=== PATIENT | female | born 1970 | race Caucasian/White ===

== ENCOUNTER 2018-09-02 09:57 | Inpatient (IN) | payer MEDICAID ==
[~2018-09-02] VITALS: Ht 162.6 cm; Wt 88.6 kg
[2018-09-02 09:59] VITALS: Ht 162.6 cm; Wt 88.6 kg
--- NOTE | 2018-09-02 10:11 | NUR ---
PT HERE FOR PAIN 03/18 IN LEFT SHOULDER RADIATES TO LEFT FLANK WITH NAUSEA NO VOMITING STARTED YESTERDAY. PT HAS HX OF HTN. DENIES PAIN WITH URINATION BUT CLAIMS SHE IS HAVING PRESSURE WITH URINATION. PT PRESENT TO ED ALERT AND ORIENTED WITH NO DISTRESS NOTED. URINE OBTAINED FOR DIP
--- NOTE | 2018-09-02 10:11 | NUR ---
AT BEDSIDE FOR EVAL
[2018-09-02 10:43] LABS: BASOPHIL % 0.5 % (0-2); PLATELET COUNT 256 x10^3mcL (130-400)
[2018-09-02 10:47] LABS: microscopic required? YES; urine erythrocyte 3+ (NEGATIVE)
[2018-09-02 10:48] LABS: CALCIUM 8.6 mg/dL (8.5-10.1); CHLORIDE SERUM 102 mmol/L (98-107); CREATININE SERUM 0.7 mg/dL (0.6-1.0); GFR1 > 60 mL/min; GLUCOSE SERUM 166 mg/dL (74-106); SODIUM SERUM 136 mmol/L (136-145)
--- NOTE | 2018-09-02 11:30 | NUR ---
PT AWAITING ALL RESULTS AND REEVAL. VSS AND PAIN 2/10 AND TOLERABLE. NO DISTRESS NOTED AND WILL CONTINUE TO MONITOR
[2018-09-02 12:31] LABS: AMPHETAMINE QUAL UR NONE DETECTED (See below)
--- NOTE | 2018-09-02 12:34 | NUR ---
REPORT GIVEN TO KRISTIE BROWNLEE RN
[2018-09-02 12:35] LABS: CHOLESTEROL/HDL RATIO 3.4; MAGNESIUM 1.8 mg/dL (1.8-2.4); PHOSPHOROUS 3.2 mg/dL (2.5-4.9)
[2018-09-02 12:40] LABS: T3 TOTAL 1.15 ng/mL
[2018-09-02 12:48] LABS: FREE T4 0.91 ng/dL (0.76-1.46); FREE THYROXINE INDEX 3.5 ug/dL (1.4-4.5); T4(THYROXINE) 11.3 ug/dL (4.7-13.3)
--- NOTE | 2018-09-02 13:00 | NUR ---
RECEIVED FROM ER VIA GURNEY ADMITS FOR CHEST PAIN. SEEN AAOX4. SPOUSE AT BEDSIDE INTERPRETED FROM LATVIAN TO DUTCH. STATED PAIN TO LEFT SHOULDER RADIATING TO LEFT FLANK 7/10 ON PAIN SCALE. TELE#29 SHOWS NSR HR=73. BREATHING E/U ON ROOM AIR. V/S CHECKED STABLE,O2SAT 96% ON ROOM AIR. LUNG SOUND CTA BILATERALLY. NO EDEMA NOTED. STATED AMBULATORY WELL. S/L TO RT HAND FLUSHED PATENT. ORIENTING TO ROOM ENVIRONMENT. CALL LIGHT PLACED WITHIN EASY REACH. SIDERAILS UP X2.
[2018-09-02 13:03] VITALS: BP 130/74
--- NOTE | 2018-09-02 13:30 | NUR ---
TORADOL 30MG IVP GIVEN FOR LEFT FLANK PAIN. NO ADVERSE REACTION NOTED. WILL CONTINUE TO MONITOR.
--- NOTE | 2018-09-02 14:00 | NUR ---
FINISHED 100% OF LUNCH. DENIES NAUSEA AT THIS TIME.
--- NOTE | 2018-09-02 15:00 | NUR ---
SITTING AT BEDSIDE STATED LEFT FLANK PAIN RELIEF.
[2018-09-02 16:28] VITALS: BP 120/73
--- NOTE | 2018-09-02 16:30 | NUR ---
IV CATHETER#20 INSERTED TO LFA WITH GOOD BLD RETURNED AND FLUSHED WELL FOR CT L-SPINE WITH IV CONTRAST.
--- NOTE | 2018-09-02 16:56 | NUR ---
OFF FLOOR FOR CT L-SPINE VIA WHEELCHAIR.
--- NOTE | 2018-09-02 17:30 | NUR ---
BACK FROM CT SCAN, PATIENT MADE AWARE OF NOT TAKING METFORMIN AFTER IV CONTRAST GIVEN FOR 48HRS.
--- NOTE | 2018-09-02 19:10 | NUR ---
REC'D PT FROM DAY NURSE. FAMILY AT BEDSIDE. PT RESTING IN BED. AAOX4, SPEECH CLEAR, FOLLOWS COMMANDS. TELE 29. DENIES CP, DIZZINESS, OR PALPITATIONS. NO EDEMA NOTED. DENIES RESP DISTRESS OR SOB. BREATHING EVEN/UNLABORED ON RA. ABD SOFT/ROUND. DENIES ABD PAIN, TENDERNESS, OR N/V. VOIDING FREELY. MENSTRUATING- DAY 3. REPORTS MILD BLEEDING- DENIES ABNORMALITIES. REPORTS 6/10 L SIDED BACK PAIN. KPAD APPLIED PER ORDER. TOLERABLE AT THIS TIME. SKIN INTACT. IVS TO RH AND LFA FLUSHED AND PATENT. SITES WNL. CALL LIGHT WITHIN REACH, BED AT LOWEST POSITION. WILL CONTINUE TO MONITOR.
[2018-09-02 21:57] VITALS: BP 111/76
--- NOTE | 2018-09-03 01:13 | NUR ---
PT RESTING IN BED WITH EYES CLOSED. NO SIGNS OF DISTRESS NOTED. BREATHING EVEN/UNLABORED ON RA. CALL LIGHT WITHIN REACH, BED AT LOWEST POSITION. WILL CONTINUE TO MONITOR.
[2018-09-03 05:28] VITALS: BP 104/57
--- NOTE | 2018-09-03 05:51 | NUR ---
PT RESTING IN BED WITH EYES CLOSED. AWAKENS EASILY. REPORTS MILD BACK PAIN AT THIS TIME. KPAD IN PLACE. SCHEDULED FLEXERIL GIVEN. DENIES ANY CHEST PAIN OR DISCOMFORT. TROP (-) X3. NO SIGNIFICANT CHANGES DURING SHIFT. CALL LIGHT WITHIN REACH, BED AT LOWEST POSITION. WILL ENDORSE TO DAY NURSE.
[2018-09-03 06:30] LABS: BASOPHIL % 0.7 % (0-2); PLATELET COUNT 230 x10^3mcL (130-400); RED CELL DISTRIBUTION WIDTH 13.8 % (11.5-14.5)
[2018-09-03 06:57] LABS: CALCIUM 8.6 mg/dL (8.5-10.1); CARBON DIOXIDE 28.1 mmol/L (21-32); CHLORIDE SERUM 106 mmol/L (98-107); CREATININE SERUM 0.7 mg/dL (0.6-1.0); GFR1 > 60 mL/min; GLUCOSE SERUM 111 mg/dL (74-106); LIPASE 231 IU/L (73-393); MAGNESIUM 1.7 mg/dL (1.8-2.4); PHOSPHOROUS 4.1 mg/dL (2.5-4.9); POTASSIUM SERUM 4.2 mmol/L (3.5-5.1); SODIUM SERUM 141 mmol/L (136-145)
[2018-09-03 08:15] VITALS: BP 111/59
--- NOTE | 2018-09-03 08:30 | NUR ---
AAO TIMES 4. TELE # 29 SR. LUNGS CTA. NO SOB. O2 SAT ON RA 98%. BS'S ACTIVE TIMES 4. JESSICA STRONG. IV SITE LEFT HAND PATENT, CDI. COOPERATIVE. NO C/O PAIN. SHE IS WATCHING TV AND SLEEPING.
[2018-09-03 12:30] VITALS: BP 111/71
[2018-09-03] MEDS ORDERED: CYCLOBENZAPRINE5 MG PO (14:14)
[2018-09-03] MEDS ORDERED: MOT800 PO (14:18)
[2018-09-03 14:37] VITALS: BP 111/71
--- NOTE | 2018-09-03 15:38 | NUR ---
DC'D BOTH SL'S ANGIO INTACT. GAVE HER DISCHARGE INSTRUCTIONS AND PRESCRIPTION. SHE WAS WHEELED DOWN TO HER CAR WITH HER . SHE VERBALIED "I UNDERSTAND" TO ALL INSTRUCTIONS.
== END 2018-09-03 15:16 | disposition home or self-care (01) | DRG 203 ==
LOC: ED 09:57 → DU 11:56
PROVIDERS: Emergency Medicine; ADMIT Internal Medicine
DX: M94.0 Chondrocostal junction syndrome [Tietze] (principal); D68.69 Other thrombophilia; E11.65 Type 2 diabetes mellitus with hyperglycemia; M47.896 Other spondylosis, lumbar region; M51.27 Other intervertebral disc displacement, lumbosacral region; I10 Essential (primary) hypertension; E66.9 Obesity, unspecified; Z71.3 Dietary counseling and surveillance; Z68.33 Body mass index [BMI] 33.0-33.9, adult
CPT/HCPCS: 82962; 83880; 84439; 97116-GP; J1885; J2405; J3010; Q0092; Q9967